=== PATIENT | female | born 1975 | race Caucasian/White ===

== ENCOUNTER 2017-04-03 05:51 | Day surgery (SDC) | payer OTHER, SELFPAY ==
[~2017-04-03] VITALS: Ht 167.6 cm; Wt 94.5 kg
[~2017-04-03 05:51] MED LIST: COLACE100 MG PO; MILK OF MAGNESI10 ML PO; MOTRIN-DPS800 MG PO; PERCOCET 5-3251 EACH PO
--- NOTE | 2017-04-17 08:03 | HP ---
ADMIT: 04/03/2017 RM/LOC: [facility] MR#: [id number] 2620 [facility] [address] [place] [id number] BETITO BURLESON [address] [place] [phone] Pre-OP History and Physical SEX: F AGE: 41 : 1975 DATE OF SERVICE: HISTORY OF PRESENT ILLNESS: The patient is a 41-year-old female who presented to the office with complaints of right lower quadrant pain. The patient states that over the past three years, she has had almost constant right lower quadrant pain. The patient describes this as moderate and burning pain. The patient states that the pain is worse during her periods. She also complains of worsening of symptoms with standing, walking, and exercise. At times, the pain is relieved with having a bowel movement. The patient has tried oral contraceptive pills which has not helped the pain and has tried pelvic physical therapy which also has not helped the pain. At this time, the patient desires to proceed with diagnostic laparoscopy to further evaluate pelvic pain. PAST MEDICAL HISTORY: Previous history of gestational diabetes. PAST SURGICAL HISTORY: section x5. The patient's last section was performed already and there was a pelvic hematoma and the patient had urinary catheter left in place for approximately 1 week after surgery. ALLERGIES: NO KNOWN MEDICAL ALLERGIES. CURRENT MEDICATIONS: 1. vitamin daily. 2. Tylenol as needed for pain. SOCIAL HISTORY: The patient is . She denies any alcohol, tobacco, or drug use. FAMILY HISTORY: Mother with diabetes. REVIEW OF SYSTEMS: GENERAL: The patient is feeling well. She denies any unexpected weight changes, fever, chills. CARDIOVASCULAR: No chest pain, palpitations, or dyspnea with exertion. RESPIRATORY: No cough, wheeze, or shortness of breath. GASTROINTESTINAL: Positive for abdominal pain. She also complains of occasional diarrhea. She denies any melena or hematochezia. FEMALE GENITOURINARY: Positive for pelvic pain and dysmenorrhea. She denies any unexpected vaginal discharge and denies any urinary complaints. PHYSICAL EXAMINATION: VITAL SIGNS: Weight 209 pounds, height 64 inches, BMI 35, blood pressure 104/68. GENERAL: The patient is alert and oriented, no acute distress. HEART: Regular rate and rhythm without murmurs, gallops, or rubs. LUNGS: Clear to auscultation bilaterally. ABDOMEN: Soft, nondistended. Positive tenderness to palpation in the right and left lower quadrants. No masses are appreciated. FEMALE GENITOURINARY: Normal-appearing external female genitalia. Normal Bartholin's, [place]'s, and urethral glands. Vagina appears estrogenized ADMIT: 04/03/2017 RM/LOC: [facility] MR#: [id number] [address] [id number] BETITO BURLESON [address] [place] [id number] Pre-OP History and Physical SEX: F AGE: 41 : 1975 without lesions. Bimanual examination reveals some cervical motion tenderness. Right adnexa is tender but no masses are appreciated. The patient had an ultrasound in April of 2016 which showed normal-appearing uterus with thin endometrial stripe and normal-appearing ovaries. ASSESSMENT AND PLAN: A 41-year-old female with chronic right lower quadrant pelvic pain. The patient has failed conservative measures of oral contraceptive pills and pelvic physical therapy for potential scar tissue. Due to the patient's history of five previous sections as well as history of pelvic hematoma, it is likely that there may be adhesions in the pelvis which are causing pelvic pain. Due to chronic pelvic pain, the plan at this time is to proceed with diagnostic laparoscopy and possible lysis of adhesions. The risks, benefits, and alternatives of surgery including, but not limited to risk of bleeding, possibly requiring blood transfusion, risk of infection, and the risk of injury to bowel or bladder, especially given her numerous pelvic surgeries in the past, were discussed with the patient. The patient understands these risks and wishes to proceed. Monica Elizabeth MD/ pipo JOB #: [id number] CC: Monica Elizabeth, Attending Physician UNKNOWN, Family Physician
--- NOTE | 2017-06-15 07:41 | OR ---
ADMIT: 04/03/2017 RM/LOC: [facility] MR#: [id number] [address] [facility] [address] [place] [id number] BETITO BURLESON [address] [place] [id number] Operative/Delivery Room Report SEX: F AGE: 41 : 1975 SURGERY DATE: 04/03/2017 SURGEON: Monica Elizabeth MD NAME OF PROCEDURE: Laparoscopy with lysis of adhesions and right paratubal cyst excision. ESTIMATED BLOOD LOSS: 25 mL. ANESTHESIA: General. COMPLICATIONS: None. FINDINGS AT TIME OF SURGERY: 1. Uterus with scarring to the bladder anteriorly. 2. Right paratubal cyst scar to the right pelvic sidewall. 3. Omental adhesions on the patient's left in umbilicus. INDICATIONS FOR PROCEDURE: The patient is a 41-year-old female with history of right lower quadrant pain which had been chronic over several years. The patient did have a history of previous section x5. The patient had tried oral contraceptive pills and pelvic floor physical therapy for potential scar tissue, and had not had relief. Decision was therefore made to proceed with diagnostic laparoscopy with possible lysis of adhesions. Risks, benefits, and alternatives of surgery had been discussed with the patient, and she wished to proceed. DESCRIPTION OF PROCEDURE: The patient was taken to the operating room where general anesthesia was obtained without difficulty. The patient was placed in dorsal lithotomy position in [facility], and prepped and draped in usual sterile fashion. A Laureano catheter was placed. A breakaway speculum was used for visualization of the cervix. The anterior lip of the cervix was grasped with a single-tooth tenaculum and an acorn uterine manipulator was placed in the cervix for uterine manipulation. Gloves were changed and attention was turned to the patient's abdomen. A 5-mm infraumbilical incision was made with the scalpel after local infiltration of 0.25% Marcaine. Veress needle was inserted into this incision. The patient's abdomen was insufflated to patient pressure of 15 mmHg. Good gas flow and low patient opening pressure were noted with insufflation. A 5 mm trocar was then placed in this incision and intraperitoneal placement was assured with the camera. A 2nd 5 mm port was placed in the left lower quadrant. At this point, inspection of the patient's pelvis revealed scarring of the omentum to the anterior abdominal wall. This was taken down with Thunderbeat device. There was also noted to be adherence of the bladder to the anterior uterus and some adhesions of the omentum and the left pelvic side wall. These were able to be taken down with a Thunderbeat device. It was noted that on the patient's right side, there was a right paratubal cyst, somewhat sitting at ADMIT: 04/03/2017 RM/LOC: [facility] MR#: [id number] [address] [place] [phone] BETITO BURLESON [address] [place] [address] Operative/Delivery Room Report SEX: F AGE: 41 : 1975 the pelvic brim. This was noted to be adherent to the right pelvic sidewall at the location of the patient's pain. This pulled the tube up to the patient sidewall as well. Using a combination of sharp and blunt dissection, this was able to be removed and the adhesions were all taken down. The patient's tube and ovary on the right otherwise appeared normal, as did the tube and ovary on the left side. At this point, all adhesions had been taken down as much as possible, and all the pelvis appeared hemostatic. The CO2 gas was removed from the patient's abdomen, and the trocars were removed without difficulty. The skin incisions were closed with subcuticular 3-0 Vicryl. The instruments were removed from the patient's vagina and then the cervix was noted to be hemostatic. The patient tolerated the procedure well. All sponge and needle counts were correct. Monica Elizabeth MD/ pipo JOB #: [id number] CC: Monica Elizabeth MD, Attending Physician NO FAMILY PHYSICIAN, Family Physician
== END 2017-04-03 11:40 | disposition home or self-care (01) ==
LOC: SSS 05:51
PROC: 0UBF4ZZ Excision of Cul-de-sac, Percutaneous Endoscopic Approach (ICD-10-PCS; principal; 2017-04-03)
DX: Q50.5 Embryonic cyst of broad ligament (principal); N73.6 Female pelvic peritoneal adhesions (postinfective); Z79.899 Other long term (current) drug therapy